=== PATIENT | female | born 1945 | race Two or more races ===

== ENCOUNTER 2023-11-20 21:55 | Inpatient (IN) | payer MEDICARE, OTHER ==
[~2023-11-20] VITALS: Ht 157.5 cm; Wt 68.5 kg
[~2023-11-20 21:55] MED LIST: ASPIRIN 325 MG TABLET PO SCH
[2023-11-20] MEDS ORDERED: AZITHROMYCIN 500 MG VIAL ONE (22:31)
[2023-11-20] MEDS ORDERED: dexaMETHasone SOD PHOSPHATE 1 ML ONE (22:31)
[2023-11-20] MEDS ORDERED: VANCOMYCIN 1 GM /D5W 250 ML PB IV ONE (22:31)
[2023-11-20] MEDS ORDERED: PIPERACI/TAZO 3.375GM/D5W 50ML PB IV ONE (22:31)
[2023-11-20] MEDS ORDERED: ACETAMINOPHEN ES 500 MG TABLET ONE (22:32)
[2023-11-20] MEDS: VANCOMYCIN 1 GM in IV D5W 250 ML IV ONE (22:53)
[2023-11-20] MEDS: dexaMETHasone SOD PHOSPHATE 10 MG/ML VIAL IV ONE (22:53)
[2023-11-20] MEDS: IV NS 0.9% 1,000 ML BAG IV ONE (22:53)
[2023-11-20] MEDS: PIPERACILLIN /TAZOBACTAM 3.375 G in IV D5W 50 ML IV ONE (22:53)
[2023-11-20 23:07] LABS: BASOPHILS % (AUTO) 0.3 % (0.0-2.0); HEMATOCRIT 36 % (33-45); HEMOGLOBIN 12.2 g/dL (11.5-14.8); LYMPHOCYTES # (AUTO) 0.7 K/uL (0.8-4.8); LYMPHOCYTES % (AUTO) 15.5 % (20.0-44.0); MEAN CORPUSCULAR HEMOGLOBIN 30 PG (26.0-33.0); MEAN CORPUSCULAR HGB CONC 34 g/dl (31.0-36.0); MEAN CORPUSCULAR VOLUME 89 fL (82-100); MONOCYTES # (AUTO) 0.4 K/uL (0.1-1.30); MONOCYTES % (AUTO) 10.3 % (2.0-12.0); NEUTROPHILS # (AUTO) 3.1 K/uL (1.8-8.9); NEUTROPHILS % (AUTO) 73.9 % (43.0-81.0); PLATELET COUNT (AUTO) 63 K/uL (150-450); RED BLOOD CELL COUNT(AUTO) 4.08 MIL/uL (4.0-5.2); RED CELL DISTRIBUTION WIDTH 15.7 % (11.5-15.0); WHITE BLOOD COUNT (AUTO) 4.2 K/uL (4.3-11.0)
[2023-11-20 23:15] LABS: CALCIUM, SERUM 8.4 mg/dL (8.5-10.1); CARBON DIOXIDE 25 mmol/L (21-32); CHLORIDE 103 mmol/L (98-107); CREATININE 1.3 mg/dL (0.6-1.3); GLUCOSE 92 mg/dL (74-106); POTASSIUM 4.2 mmol/L (3.5-5.1); SODIUM SERUM 138 mmol/L (136-145); UREA NITROGEN, BLOOD 22 mg/dL (7-18)
[2023-11-20] MEDS: ACETAMINOPHEN ES 500 MG TABLET PO ONE (23:19)
[2023-11-20] MEDS: AZITHROMYCIN 500 MG in IV D5W 250 ML IV ONE (23:19)
[2023-11-20 23:21] LABS: INR 1.57 (0.91-1.10); PARTIAL THROMBOPLASTIN TIME 36.4 SEC (24.3-34.3); PROTHROMBIN TIME 16.2 SECS (9.2-11.1)
[2023-11-20 23:22] LABS: ALANINE AMINOTRANSFERASE 26 U/L (12-78); ALBUMIN 3.8 g/dL (3.4-5.0); ALKALINE PHOSPHATASE 103 U/L (46-116); ASPARTATE AMINOTRANSFERASE 41 U/L (15-37); BILIRUBIN,DIRECT 0.3 mg/dL (0.0-0.2); TOTAL PROTEIN, SERUM 8.1 g/dL (6.4-8.2)
[2023-11-20 23:23] LABS: LACTIC ACID 1.1 mmol/L (0.4-2.0)
[2023-11-20 23:27] LABS: BASOPHILS % (MANUAL) 0 % (0.0-2.0); EOSINOPHILS % (MANUAL) 0 % (0-4); LYMPHOCYTES % (MANUAL) 12 % (16-48); MONOCYTES % (MANUAL) 10 % (0-11.0); NEUTROPHILS % (MANUAL) 78 (42-76)
[2023-11-20 23:28] LABS: PLATELET ESTIMATE DECREASED
[2023-11-20] MEDS ORDERED: ONDANSETRON HCL/PF 4 MG/2 ML VIAL IVP PRN (23:30)
[2023-11-20] MEDS ORDERED: ACETAMINOPHEN 325 MG TABLET PO PRN (23:30)
[2023-11-20] MEDS ORDERED: MORPHINE SULFATE INJ 2 MG/ML DISP.SYRIN IV PRN (23:30)
[2023-11-20] MEDS ORDERED: ALBUTEROL FS 2.5 MG/0.5 ML VIAL.NEB NEB PRN (23:30)
[2023-11-20] MEDS ORDERED: hydrALAZINE HCL IV 20 MG VIAL IV PRN (23:30)
[2023-11-21] MEDS: IPRATROPIUM/ALBUTEROL INHALER IH SCH (00:57)
[2023-11-21 04:00] VITALS: BP 99/55; TEMP 97.7; O2SAT 96
[2023-11-21 07:38] LABS: INR 1.56 (0.91-1.10); PROTHROMBIN TIME 16.1 SECS (9.2-11.1)
[2023-11-21 07:46] LABS: ALANINE AMINOTRANSFERASE 29 U/L (12-78); ALBUMIN 3.1 g/dL (3.4-5.0); ALKALINE PHOSPHATASE 86 U/L (46-116); ASPARTATE AMINOTRANSFERASE 42 U/L (15-37); BILIRUBIN,TOTAL 0.8 mg/dL (0.2-1.0); CALCIUM, SERUM 7.9 mg/dL (8.5-10.1); CARBON DIOXIDE 22 mmol/L (21-32); CHLORIDE 107 mmol/L (98-107); CREATININE 1.2 mg/dL (0.6-1.3); GLUCOSE 154 mg/dL (74-106); MAGNESIUM 2.3 mg/dL (1.8-2.4); PHOSPHORUS 4.5 mg/dL (2.5-4.9); POTASSIUM 4.2 mmol/L (3.5-5.1); SODIUM SERUM 141 mmol/L (136-145); TOTAL PROTEIN, SERUM 7.1 g/dL (6.4-8.2); UREA NITROGEN, BLOOD 22 mg/dL (7-18)
[2023-11-21 08:00] VITALS: BP 101/52; TEMP 97.5; O2SAT 95
[2023-11-21] MEDS ORDERED: WARFARIN SODIUM 2 MG TABLET PO SCH ×2 (08:00→17:00)
[2023-11-21 08:06] LABS: BASOPHILS % (AUTO) 0.1 % (0.0-2.0); HEMATOCRIT 34 % (33-45); HEMOGLOBIN 11.7 g/dL (11.5-14.8); LYMPHOCYTES # (AUTO) 0.4 K/uL (0.8-4.8); LYMPHOCYTES % (AUTO) 12.4 % (20.0-44.0); MEAN CORPUSCULAR HEMOGLOBIN 30 PG (26.0-33.0); MEAN CORPUSCULAR HGB CONC 35 g/dl (31.0-36.0); MEAN CORPUSCULAR VOLUME 88 fL (82-100); MONOCYTES # (AUTO) 0.1 K/uL (0.1-1.30); MONOCYTES % (AUTO) 3.6 % (2.0-12.0); NEUTROPHILS % (AUTO) 83.9 % (43.0-81.0); PLATELET COUNT (AUTO) 58 K/uL (150-450); RED BLOOD CELL COUNT(AUTO) 3.85 MIL/uL (4.0-5.2); RED CELL DISTRIBUTION WIDTH 15.5 % (11.5-15.0); WHITE BLOOD COUNT (AUTO) 3.5 K/uL (4.3-11.0)
[2023-11-21] MEDS ORDERED: AMBR10TA PO (08:15)
[2023-11-21] MEDS ORDERED: METO25TA4 PO (08:15)
[2023-11-21] MEDS ORDERED: SPIR25TA6 PO (08:15)
[2023-11-21] MEDS ORDERED: FURO40TA5 PO (08:15)
[2023-11-21] MEDS ORDERED: WARF-68 PO (08:15)
[2023-11-21] MEDS ORDERED: ALPR0.5T8 PO (08:15)
[2023-11-21] MEDS ORDERED: ATOR40TA PO (08:15)
[2023-11-21] MEDS ORDERED: FOLI0.4T6 PO (08:15)
[2023-11-21] MEDS: dexaMETHasone SOD PHOSPHATE 10 MG/ML VIAL IV SCH (08:45)
[2023-11-21] MEDS ORDERED: HEPARIN SODIUM, PORCINE 5000 UNITS/1 ML VIAL SQ SCH (09:00)
[2023-11-21] MEDS ORDERED: dexaMETHasone SOD PHOSPHATE 6 MG in IV D5W 50 ML IV SCH (09:00)
[2023-11-21 09:01] LABS: C-REACTIVE PROTEIN 2.39 mg/dL (0.0-0.30)
[2023-11-21 11:31] LABS: LYMPHOCYTES % (MANUAL) 14 % (16-48); MONOCYTES % (MANUAL) 2 % (0-11.0); NEUTROPHILS % (MANUAL) 84 (42-76); PLATELET ESTIMATE DECREASED
[2023-11-21 11:33] LABS: ANISOCYTOSIS 1+; OVALOCYTES 1+
[2023-11-21] MEDS: ENOXAPARIN SODIUM 60 MG/0.6 ML DISP.SYRIN SQ SCH (11:38)
[2023-11-21 12:00] VITALS: BP 100/63; TEMP 97.5; TEMP 97.7; O2SAT 94
[2023-11-21] MEDS: REMDESIVIR (CHARGED) 200 MG, *LOADING DOSE 1 EA in IV NS 0.9% 210 ML IV ONE (12:00)
[2023-11-21 16:00] VITALS: BP 105/51; TEMP 97.5; O2SAT 95
[2023-11-21] MEDS: WARFARIN SODIUM 2 MG TABLET PO SCH (16:20)
[2023-11-21 20:00] VITALS: BP 125/54; TEMP 97.9; O2SAT 92
[2023-11-21] MEDS: FUROSEMIDE 40 MG/4 ML VIAL IV ONE (20:05)
[2023-11-21] MEDS: ALBUTEROL SULFATE 8 GM HFA.AER.AD IH PRN (23:12)
[2023-11-22] VITALS (7 sets, daily range): BP systolic 110–126; BP diastolic 55–98; TEMP 97.5–98.4; O2SAT 92–93
[2023-11-22 07:30] LABS: HEMATOCRIT 36 % (33-45); HEMOGLOBIN 12.2 g/dL (11.5-14.8); LYMPHOCYTES # (AUTO) 0.7 K/uL (0.8-4.8); LYMPHOCYTES % (AUTO) 9.6 % (20.0-44.0); MEAN CORPUSCULAR HEMOGLOBIN 30 PG (26.0-33.0); MEAN CORPUSCULAR HGB CONC 34 g/dl (31.0-36.0); MEAN CORPUSCULAR VOLUME 88 fL (82-100); MONOCYTES # (AUTO) 0.6 K/uL (0.1-1.30); MONOCYTES % (AUTO) 8.7 % (2.0-12.0); NEUTROPHILS # (AUTO) 5.6 K/uL (1.8-8.9); NEUTROPHILS % (AUTO) 81.7 % (43.0-81.0); PLATELET COUNT (AUTO) 78 K/uL (150-450); RED CELL DISTRIBUTION WIDTH 15.1 % (11.5-15.0); WHITE BLOOD COUNT (AUTO) 6.9 K/uL (4.3-11.0)
[2023-11-22 07:31] LABS: INR 1.81 (0.91-1.10); PROTHROMBIN TIME 18.5 SECS (9.2-11.1)
[2023-11-22 07:51] LABS: ALANINE AMINOTRANSFERASE 32 U/L (12-78); ALBUMIN 3.5 g/dL (3.4-5.0); ALKALINE PHOSPHATASE 91 U/L (46-116); ASPARTATE AMINOTRANSFERASE 56 U/L (15-37); BILIRUBIN,DIRECT 0.2 mg/dL (0.0-0.2); BILIRUBIN,TOTAL 0.7 mg/dL (0.2-1.0); CALCIUM, SERUM 8.7 mg/dL (8.5-10.1); CARBON DIOXIDE 21 mmol/L (21-32); CHLORIDE 107 mmol/L (98-107); CREATININE 1.1 mg/dL (0.6-1.3); GLUCOSE 101 mg/dL (74-106); POTASSIUM 3.8 mmol/L (3.5-5.1); SODIUM SERUM 143 mmol/L (136-145); TOTAL PROTEIN, SERUM 7.9 g/dL (6.4-8.2); UREA NITROGEN, BLOOD 35 mg/dL (7-18)
[2023-11-22 08:01] LABS: RHEUMATOID FACTOR SCREEN NEGATIVE (NEGATIVE)
[2023-11-22 08:03] LABS: C-REACTIVE PROTEIN 2.99 mg/dL (0.0-0.30); THYROID STIMULATING HORMONE 2.29 uIU/mL (0.358-3.74)
[2023-11-22] MEDS: ATORVASTATIN 40 MG TABLET PO SCH (09:41)
[2023-11-22] MEDS: FUROSEMIDE 40 MG TABLET PO SCH (09:41)
[2023-11-22] MEDS: SPIRONOLACTONE 25 MG TABLET PO SCH (09:41)
[2023-11-22] MEDS: METOPROLOL SUCCINATE 25 MG TAB.SR.24H PO SCH (09:41)
[2023-11-22 09:42] LABS: ANISOCYTOSIS 1+; BAND % (MANUAL) 3 % (0.0-5.0); BASOPHILS % (MANUAL) 0 % (0.0-2.0); EOSINOPHILS % (MANUAL) 0 % (0-4); LYMPHOCYTES % (MANUAL) 8 % (16-48); MONOCYTES % (MANUAL) 6 % (0-11.0); NEUTROPHILS % (MANUAL) 83 (42-76); PLATELET ESTIMATE DECREASED
[2023-11-22] MEDS: REMDESIVIR (CHARGED) 100 MG in IV NS 0.9% 230 ML IV SCH (12:10)
[2023-11-22] MEDS: WARFARIN SODIUM 5 MG TABLET PO ONE (17:07)
[2023-11-22] MEDS: ALPRAZOLAM 0.5 MG TABLET PO PRN (23:24)
[2023-11-23] VITALS (7 sets, daily range): BP systolic 101–124; BP diastolic 57–64; TEMP 97.5–98.1; O2SAT 96–100
[2023-11-23 05:11] LABS: HEPATITIS B SURFACE AB Non Reactive (.)
[2023-11-23 07:08] LABS: CANCER AG, 15-3 38.1 U/mL (0.0-25.0)
[2023-11-23 07:59] LABS: BASOPHILS % (AUTO) 0.1 % (0.0-2.0); HEMATOCRIT 34 % (33-45); HEMOGLOBIN 11.4 g/dL (11.5-14.8); LYMPHOCYTES # (AUTO) 0.8 K/uL (0.8-4.8); LYMPHOCYTES % (AUTO) 14.1 % (20.0-44.0); MEAN CORPUSCULAR HEMOGLOBIN 30 PG (26.0-33.0); MEAN CORPUSCULAR HGB CONC 34 g/dl (31.0-36.0); MEAN CORPUSCULAR VOLUME 88 fL (82-100); MONOCYTES # (AUTO) 0.5 K/uL (0.1-1.30); MONOCYTES % (AUTO) 9.5 % (2.0-12.0); NEUTROPHILS # (AUTO) 4.3 K/uL (1.8-8.9); NEUTROPHILS % (AUTO) 76.3 % (43.0-81.0); PLATELET COUNT (AUTO) 87 K/uL (150-450); RED BLOOD CELL COUNT(AUTO) 3.86 MIL/uL (4.0-5.2); RED CELL DISTRIBUTION WIDTH 15.1 % (11.5-15.0); WHITE BLOOD COUNT (AUTO) 5.7 K/uL (4.3-11.0)
[2023-11-23 08:10] LABS: FREE LAMBDA LT CHAIN SERUM 24.3 mg/L (5.7-26.3); IMMUNOGLOBULIN A, SERUM 225 mg/dL (64-422); IMMUNOGLOBULIN G, SERUM 1518 mg/dL (586-1602); IMMUNOGLOBULIN M, SERUM 28 mg/dL (26-217); KAPPA/LAMBDA RATIO SERUM 2.02 (0.26-1.65)
[2023-11-23 08:10] LABS: INR 2.44 (0.91-1.10); PARTIAL THROMBOPLASTIN TIME 43.1 SEC (24.3-34.3); PROTHROMBIN TIME 24.4 SECS (9.2-11.1)
[2023-11-23 08:12] LABS: ALANINE AMINOTRANSFERASE 29 U/L (12-78); ALBUMIN 3.2 g/dL (3.4-5.0); ALKALINE PHOSPHATASE 76 U/L (46-116); ASPARTATE AMINOTRANSFERASE 44 U/L (15-37); BILIRUBIN,DIRECT 0.2 mg/dL (0.0-0.2); BILIRUBIN,TOTAL 0.6 mg/dL (0.2-1.0); CALCIUM, SERUM 8.5 mg/dL (8.5-10.1); CARBON DIOXIDE 29 mmol/L (21-32); CHLORIDE 104 mmol/L (98-107); CREATININE 1.1 mg/dL (0.6-1.3); GLUCOSE 100 mg/dL (74-106); POTASSIUM 4.1 mmol/L (3.5-5.1); SODIUM SERUM 141 mmol/L (136-145); TOTAL PROTEIN, SERUM 7.7 g/dL (6.4-8.2); UREA NITROGEN, BLOOD 39 mg/dL (7-18)
[2023-11-23 09:58] LABS: ANISOCYTOSIS 1+; BAND % (MANUAL) 1 % (0.0-5.0); LYMPHOCYTES % (MANUAL) 13 % (16-48); MONOCYTES % (MANUAL) 10 % (0-11.0); NEUTROPHILS % (MANUAL) 76 (42-76); PLATELET ESTIMATE DECREASED
[2023-11-23 13:10] LABS: FOLIC ACID > 20.0 ng/mL (>3.0)
[2023-11-24] VITALS (7 sets, daily range): BP systolic 96–120; BP diastolic 54–68; TEMP 97.5–97.9; O2SAT 91–97
[2023-11-24 09:03] LABS: PROTHROMBIN TIME 51.1 SECS (9.2-11.1)
[2023-11-24 09:07] LABS: INR 5.38 (0.91-1.10)
[2023-11-24 09:09] LABS: BASOPHILS % (AUTO) 0.1 % (0.0-2.0); HEMATOCRIT 32 % (33-45); HEMOGLOBIN 10.7 g/dL (11.5-14.8); LYMPHOCYTES # (AUTO) 0.7 K/uL (0.8-4.8); LYMPHOCYTES % (AUTO) 13.5 % (20.0-44.0); MEAN CORPUSCULAR HEMOGLOBIN 29 PG (26.0-33.0); MEAN CORPUSCULAR HGB CONC 34 g/dl (31.0-36.0); MEAN CORPUSCULAR VOLUME 88 fL (82-100); MONOCYTES # (AUTO) 0.3 K/uL (0.1-1.30); MONOCYTES % (AUTO) 6.1 % (2.0-12.0); NEUTROPHILS # (AUTO) 4.3 K/uL (1.8-8.9); NEUTROPHILS % (AUTO) 80.3 % (43.0-81.0); PLATELET COUNT (AUTO) 106 K/uL (150-450); RED BLOOD CELL COUNT(AUTO) 3.64 MIL/uL (4.0-5.2); WHITE BLOOD COUNT (AUTO) 5.4 K/uL (4.3-11.0)
[2023-11-24 09:21] LABS: ALANINE AMINOTRANSFERASE 34 U/L (12-78); ALBUMIN 3.2 g/dL (3.4-5.0); ALKALINE PHOSPHATASE 78 U/L (46-116); ASPARTATE AMINOTRANSFERASE 42 U/L (15-37); BILIRUBIN,DIRECT 0.2 mg/dL (0.0-0.2); BILIRUBIN,TOTAL 0.5 mg/dL (0.2-1.0); CALCIUM, SERUM 8.7 mg/dL (8.5-10.1); CARBON DIOXIDE 28 mmol/L (21-32); CHLORIDE 104 mmol/L (98-107); CREATININE 0.9 mg/dL (0.6-1.3); GLUCOSE 122 mg/dL (74-106); POTASSIUM 4.2 mmol/L (3.5-5.1); SODIUM SERUM 141 mmol/L (136-145); TOTAL PROTEIN, SERUM 7.8 g/dL (6.4-8.2); UREA NITROGEN, BLOOD 41 mg/dL (7-18)
[2023-11-25] VITALS: BP 107/60; TEMP 97.7; O2SAT 93
[2023-11-25 04:00] VITALS: BP 106/61; TEMP 97.5; O2SAT 91
[2023-11-25 07:58] LABS: EOSINOPHILS % (AUTO) 0.1 % (0.0-6.0); HEMATOCRIT 30 % (33-45); HEMOGLOBIN 10.2 g/dL (11.5-14.8); LYMPHOCYTES # (AUTO) 0.9 K/uL (0.8-4.8); LYMPHOCYTES % (AUTO) 12.9 % (20.0-44.0); MEAN CORPUSCULAR HEMOGLOBIN 30 PG (26.0-33.0); MEAN CORPUSCULAR HGB CONC 34 g/dl (31.0-36.0); MEAN CORPUSCULAR VOLUME 86 fL (82-100); MONOCYTES # (AUTO) 0.5 K/uL (0.1-1.30); MONOCYTES % (AUTO) 7.2 % (2.0-12.0); NEUTROPHILS # (AUTO) 5.6 K/uL (1.8-8.9); NEUTROPHILS % (AUTO) 79.8 % (43.0-81.0); PLATELET COUNT (AUTO) 132 K/uL (150-450); RED BLOOD CELL COUNT(AUTO) 3.44 MIL/uL (4.0-5.2); RED CELL DISTRIBUTION WIDTH 14.4 % (11.5-15.0); WHITE BLOOD COUNT (AUTO) 7.1 K/uL (4.3-11.0)
[2023-11-25 08:00] VITALS: BP 117/55; TEMP 97.9; O2SAT 91; O2SAT 93
[2023-11-25 08:10] LABS: PARTIAL THROMBOPLASTIN TIME 40.6 SEC (24.3-34.3); PROTHROMBIN TIME 53.1 SECS (9.2-11.1)
[2023-11-25 08:20] LABS: ALANINE AMINOTRANSFERASE 28 U/L (12-78); ALBUMIN 3.2 g/dL (3.4-5.0); ALKALINE PHOSPHATASE 70 U/L (46-116); ASPARTATE AMINOTRANSFERASE 31 U/L (15-37); BILIRUBIN,DIRECT 0.2 mg/dL (0.0-0.2); BILIRUBIN,TOTAL 0.6 mg/dL (0.2-1.0); CALCIUM, SERUM 8.6 mg/dL (8.5-10.1); CARBON DIOXIDE 28 mmol/L (21-32); CHLORIDE 103 mmol/L (98-107); GLUCOSE 118 mg/dL (74-106); SODIUM SERUM 139 mmol/L (136-145); TOTAL PROTEIN, SERUM 7.5 g/dL (6.4-8.2); UREA NITROGEN, BLOOD 47 mg/dL (7-18)
[2023-11-25 08:32] LABS: INR 5.61 (0.91-1.10)
[2023-11-25 09:11] LABS: *SPE ALBUMIN 3.6 g/dL (2.9-4.4); *SPE ALPHA-1-GLOBULIN 0.3 g/dL (0.0-0.4); *SPE ALPHA-2-GLOBULIN 0.8 g/dL (0.4-1.0); *SPE GLOBULIN, TOTAL 3.6 g/dL (2.2-3.9); *SPE M-SPIKE Not Observed g/dL (Not Observed); *SPE PROTEIN TOTAL 7.2 g/dL (6.0-8.5); *SPEGAMMA GLOBULIN 1.5 g/dL (0.4-1.8)
[2023-11-25 12:00] VITALS: BP 117/55; TEMP 97.9; O2SAT 91
[2023-11-25 12:47] LABS: BASOPHILS % (MANUAL) 0 % (0.0-2.0); EOSINOPHILS % (MANUAL) 2 % (0-4); LYMPHOCYTES % (MANUAL) 11 % (16-48); MONOCYTES % (MANUAL) 7 % (0-11.0); NEUTROPHILS % (MANUAL) 80 (42-76)
[2023-11-25 12:48] LABS: PLATELET ESTIMATE DECREASED
[2023-11-25 14:07] LABS: *ANA ANTI-CENTROMERE B AB <0.2 AI (0.0-0.9); *ANA ANTI-DNA(DS) AB, QN <1 IU/mL (0-9); *ANA ANTI-JO-1 <0.2 AI (0.0-0.9); *ANA ANTICHROMATIN ANTIBODY <0.2 AI (0.0-0.9); *ANA RNP ANTIBODIES 0.3 AI (0.0-0.9); *ANA SJOGREN'S ANTI-SS-A <0.2 AI (0.0-0.9); *ANA SJOGREN'S ANTI-SS-B <0.2 AI (0.0-0.9); *ANAANTI-SCLERODERMA-70 AB <0.2 AI (0.0-0.9); *ANASMITH AB <0.2 AI (0.0-0.9)
[2023-11-25 16:00] VITALS: BP 126/84; TEMP 97.5; O2SAT 91
[2023-11-25] MEDS: WARFARIN SODIUM 1 MG TABLET PO SCH (16:03)
[2023-11-25 20:00] VITALS: BP 120/84; TEMP 97; O2SAT 98
[2023-11-26] VITALS (7 sets, daily range): BP systolic 106–118; BP diastolic 54–67; TEMP 97.3–97.6; O2SAT 93–98
[2023-11-26 08:17] LABS: BASOPHILS % (AUTO) 0.1 % (0.0-2.0); EOSINOPHILS % (AUTO) 0.1 % (0.0-6.0); HEMATOCRIT 30 % (33-45); LYMPHOCYTES # (AUTO) 1.1 K/uL (0.8-4.8); LYMPHOCYTES % (AUTO) 14.2 % (20.0-44.0); MEAN CORPUSCULAR HEMOGLOBIN 29 PG (26.0-33.0); MEAN CORPUSCULAR HGB CONC 34 g/dl (31.0-36.0); MEAN CORPUSCULAR VOLUME 86 fL (82-100); MONOCYTES # (AUTO) 0.8 K/uL (0.1-1.30); MONOCYTES % (AUTO) 10.5 % (2.0-12.0); NEUTROPHILS # (AUTO) 5.6 K/uL (1.8-8.9); NEUTROPHILS % (AUTO) 75.1 % (43.0-81.0); PLATELET COUNT (AUTO) 168 K/uL (150-450); RED BLOOD CELL COUNT(AUTO) 3.47 MIL/uL (4.0-5.2); RED CELL DISTRIBUTION WIDTH 14.5 % (11.5-15.0); WHITE BLOOD COUNT (AUTO) 7.5 K/uL (4.3-11.0)
[2023-11-26 08:19] LABS: PARTIAL THROMBOPLASTIN TIME 40.4 SEC (24.3-34.3)
[2023-11-26 08:26] LABS: INR 4.2 (0.91-1.10); PROTHROMBIN TIME 40.5 SECS (9.2-11.1)
[2023-11-26 10:42] LABS: ALANINE AMINOTRANSFERASE 39 U/L (12-78); ALBUMIN 3.1 g/dL (3.4-5.0); ALKALINE PHOSPHATASE 70 U/L (46-116); ASPARTATE AMINOTRANSFERASE 34 U/L (15-37); BILIRUBIN,DIRECT 0.2 mg/dL (0.0-0.2); BILIRUBIN,TOTAL 0.6 mg/dL (0.2-1.0); CALCIUM, SERUM 8.6 mg/dL (8.5-10.1); CARBON DIOXIDE 29 mmol/L (21-32); CHLORIDE 101 mmol/L (98-107); GLUCOSE 106 mg/dL (74-106); POTASSIUM 3.9 mmol/L (3.5-5.1); SODIUM SERUM 139 mmol/L (136-145); TOTAL PROTEIN, SERUM 7.4 g/dL (6.4-8.2); UREA NITROGEN, BLOOD 45 mg/dL (7-18)
[2023-11-27] VITALS: BP 116/68; TEMP 98.2; O2SAT 93
[2023-11-27 07:45] LABS: BASOPHILS % (AUTO) 0.1 % (0.0-2.0); EOSINOPHILS % (AUTO) 0.3 % (0.0-6.0); HEMATOCRIT 27 % (33-45); HEMOGLOBIN 9.5 g/dL (11.5-14.8); LYMPHOCYTES # (AUTO) 1.2 K/uL (0.8-4.8); LYMPHOCYTES % (AUTO) 14.7 % (20.0-44.0); MEAN CORPUSCULAR HEMOGLOBIN 30 PG (26.0-33.0); MEAN CORPUSCULAR HGB CONC 35 g/dl (31.0-36.0); MEAN CORPUSCULAR VOLUME 86 fL (82-100); MONOCYTES # (AUTO) 1.2 K/uL (0.1-1.30); MONOCYTES % (AUTO) 14.9 % (2.0-12.0); NEUTROPHILS # (AUTO) 5.6 K/uL (1.8-8.9); PLATELET COUNT (AUTO) 170 K/uL (150-450); RED BLOOD CELL COUNT(AUTO) 3.19 MIL/uL (4.0-5.2); RED CELL DISTRIBUTION WIDTH 14.6 % (11.5-15.0)
[2023-11-27 07:49] LABS: INR 2.73 (0.91-1.10); PROTHROMBIN TIME 27.1 SECS (9.2-11.1)
[2023-11-27 08:00] VITALS: BP 109/64; TEMP 97.7; O2SAT 99
[2023-11-27 08:17] LABS: CALCIUM, SERUM 8.2 mg/dL (8.5-10.1); CARBON DIOXIDE 28 mmol/L (21-32); CHLORIDE 100 mmol/L (98-107); GLUCOSE 133 mg/dL (74-106); POTASSIUM 3.6 mmol/L (3.5-5.1); SODIUM SERUM 137 mmol/L (136-145); UREA NITROGEN, BLOOD 39 mg/dL (7-18)
[2023-11-27] MEDS ORDERED: DEXA4TAB PO (11:39)
[2023-11-27] MEDS ORDERED: PANT40TA2 PO (11:39)
[2023-11-27 12:00] VITALS: BP 116/54; TEMP 97.7; O2SAT 99
[2023-11-27] MEDS: PANTOPRAZOLE 40 MG TABLET.DR PO SCH (12:01)
[2023-11-27 16:00] VITALS: BP 114/48; TEMP 97.5; O2SAT 95
[2023-11-27] MEDS: WARFARIN SODIUM 1 MG TABLET PO SCH (17:46)
[2023-11-27 20:00] VITALS: BP 106/83; TEMP 97.7; O2SAT 97
[2023-11-28] VITALS (7 sets, daily range): BP systolic 110–124; BP diastolic 52–62; TEMP 97.2–97.8; O2SAT 95–99
[2023-11-28 07:50] LABS: BASOPHILS % (AUTO) 0.1 % (0.0-2.0); EOSINOPHILS % (AUTO) 0.3 % (0.0-6.0); HEMATOCRIT 29 % (33-45); HEMOGLOBIN 9.9 g/dL (11.5-14.8); LYMPHOCYTES # (AUTO) 1.1 K/uL (0.8-4.8); LYMPHOCYTES % (AUTO) 10.9 % (20.0-44.0); MEAN CORPUSCULAR HEMOGLOBIN 30 PG (26.0-33.0); MEAN CORPUSCULAR HGB CONC 34 g/dl (31.0-36.0); MEAN CORPUSCULAR VOLUME 87 fL (82-100); MONOCYTES # (AUTO) 1.3 K/uL (0.1-1.30); MONOCYTES % (AUTO) 12.6 % (2.0-12.0); NEUTROPHILS # (AUTO) 7.7 K/uL (1.8-8.9); NEUTROPHILS % (AUTO) 76.1 % (43.0-81.0); PLATELET COUNT (AUTO) 201 K/uL (150-450); RED BLOOD CELL COUNT(AUTO) 3.37 MIL/uL (4.0-5.2); RED CELL DISTRIBUTION WIDTH 15.3 % (11.5-15.0); WHITE BLOOD COUNT (AUTO) 10.2 K/uL (4.3-11.0)
[2023-11-28 08:03] LABS: CALCIUM, SERUM 8.7 mg/dL (8.5-10.1); CARBON DIOXIDE 31 mmol/L (21-32); CHLORIDE 100 mmol/L (98-107); CREATININE 0.9 mg/dL (0.6-1.3); GLUCOSE 125 mg/dL (74-106); POTASSIUM 3.9 mmol/L (3.5-5.1); SODIUM SERUM 137 mmol/L (136-145); UREA NITROGEN, BLOOD 37 mg/dL (7-18)
[2023-11-28 08:15] LABS: INR 1.96 (0.91-1.10); PROTHROMBIN TIME 19.9 SECS (9.2-11.1)
[2023-11-28] MEDS: WARFARIN SODIUM 1 MG TABLET PO SCH (17:32)
[2023-11-29] VITALS (7 sets, daily range): BP systolic 109–132; BP diastolic 52–72; TEMP 97.4–98.4; O2SAT 95–100
[2023-11-29 07:21] LABS: BASOPHILS % (AUTO) 0.1 % (0.0-2.0); EOSINOPHILS % (AUTO) 0.3 % (0.0-6.0); HEMATOCRIT 30 % (33-45); HEMOGLOBIN 10.1 g/dL (11.5-14.8); LYMPHOCYTES # (AUTO) 1.1 K/uL (0.8-4.8); LYMPHOCYTES % (AUTO) 8.4 % (20.0-44.0); MEAN CORPUSCULAR HEMOGLOBIN 29 PG (26.0-33.0); MEAN CORPUSCULAR HGB CONC 34 g/dl (31.0-36.0); MEAN CORPUSCULAR VOLUME 87 fL (82-100); MONOCYTES # (AUTO) 1.4 K/uL (0.1-1.30); NEUTROPHILS # (AUTO) 10.2 K/uL (1.8-8.9); NEUTROPHILS % (AUTO) 80.2 % (43.0-81.0); PLATELET COUNT (AUTO) 207 K/uL (150-450); RED BLOOD CELL COUNT(AUTO) 3.46 MIL/uL (4.0-5.2); RED CELL DISTRIBUTION WIDTH 15.1 % (11.5-15.0); WHITE BLOOD COUNT (AUTO) 12.7 K/uL (4.3-11.0)
[2023-11-29 07:36] LABS: CALCIUM, SERUM 8.5 mg/dL (8.5-10.1); CARBON DIOXIDE 29 mmol/L (21-32); CHLORIDE 101 mmol/L (98-107); CREATININE 1.1 mg/dL (0.6-1.3); GLUCOSE 120 mg/dL (74-106); POTASSIUM 3.8 mmol/L (3.5-5.1); SODIUM SERUM 139 mmol/L (136-145); UREA NITROGEN, BLOOD 33 mg/dL (7-18)
[2023-11-29 12:58] LABS: INR 2.78 (0.91-1.10); PROTHROMBIN TIME 27.6 SECS (9.2-11.1)
[2023-11-29] MEDS ORDERED: WARF-58 PO (14:44)
[2023-11-29] MEDS: WARFARIN SODIUM 5 MG TABLET PO SCH (17:50)
[2023-11-30] VITALS: BP 134/68; TEMP 98.4; O2SAT 96
[2023-11-30 04:00] VITALS: BP 124/64; TEMP 97.7; O2SAT 96
[2023-11-30 07:52] LABS: BASOPHILS % (AUTO) 0.2 % (0.0-2.0); EOSINOPHILS % (AUTO) 0.1 % (0.0-6.0); HEMATOCRIT 31 % (33-45); HEMOGLOBIN 10.2 g/dL (11.5-14.8); LYMPHOCYTES % (AUTO) 6.9 % (20.0-44.0); MEAN CORPUSCULAR HEMOGLOBIN 30 PG (26.0-33.0); MEAN CORPUSCULAR HGB CONC 33 g/dl (31.0-36.0); MEAN CORPUSCULAR VOLUME 89 fL (82-100); MONOCYTES % (AUTO) 6.6 % (2.0-12.0); NEUTROPHILS # (AUTO) 12.9 K/uL (1.8-8.9); NEUTROPHILS % (AUTO) 86.2 % (43.0-81.0); PLATELET COUNT (AUTO) 205 K/uL (150-450); RED BLOOD CELL COUNT(AUTO) 3.45 MIL/uL (4.0-5.2); RED CELL DISTRIBUTION WIDTH 15.6 % (11.5-15.0)
[2023-11-30 08:00] VITALS: BP 126/65; TEMP 97.7; O2SAT 96
[2023-11-30 08:09] LABS: CALCIUM, SERUM 8.4 mg/dL (8.5-10.1); CARBON DIOXIDE 27 mmol/L (21-32); CHLORIDE 101 mmol/L (98-107); CREATININE 0.8 mg/dL (0.6-1.3); GLUCOSE 125 mg/dL (74-106); SODIUM SERUM 137 mmol/L (136-145); UREA NITROGEN, BLOOD 39 mg/dL (7-18)
[2023-11-30 08:47] LABS: INR 3.48 (0.91-1.10); PARTIAL THROMBOPLASTIN TIME 35.3 SEC (24.3-34.3)
[2023-11-30] MEDS ORDERED: WARF4TAB72 PO (09:43)
[2023-11-30 12:00] VITALS: BP 117/55; TEMP 98.1; O2SAT 98
[2023-11-30 16:00] VITALS: BP 121/59; TEMP 98.2; O2SAT 97
[2023-11-30] MEDS: WARFARIN SODIUM 1 MG TABLET PO SCH (16:24)
== END 2023-11-30 18:40 | disposition home or self-care (01) | DRG 871 ==
LOC: ER 21:57 → TELE1 11-21 00:13
PROVIDERS: ADMIT Internal Medicine; ATTEND Internal Medicine
PROC: XW033E5 Introduction of Remdesivir Anti-infective into Peripheral Vein, Percutaneous Approach, New Technology Group 5 (ICD-10-PCS; principal; 2023-11-21)
DX: A41.89 Other specified sepsis (principal); I21.A1 Myocardial infarction type 2; J12.82 Pneumonia due to coronavirus disease 2019; J96.01 Acute respiratory failure with hypoxia; U07.1 COVID-19; D61.818 Other pancytopenia; D68.69 Other thrombophilia; E44.0 Moderate protein-calorie malnutrition; J98.11 Atelectasis; K76.6 Portal hypertension; R18.8 Other ascites; D63.8 Anemia in other chronic diseases classified elsewhere; E66.9 Obesity, unspecified; E88.09 Other disorders of plasma-protein metabolism, not elsewhere classified; I48.91 Unspecified atrial fibrillation; Z86.16 Personal history of COVID-19; Z79.01 Long term (current) use of anticoagulants; Z95.1 Presence of aortocoronary bypass graft; Z95.2 Presence of prosthetic heart valve; I25.10 Atherosclerotic heart disease of native coronary artery without angina pectoris; N28.9 Disorder of kidney and ureter, unspecified; I50.9 Heart failure, unspecified; I11.0 Hypertensive heart disease with heart failure; Z68.27 Body mass index [BMI] 27.0-27.9, adult; I27.20 Pulmonary hypertension, unspecified; D69.6 Thrombocytopenia, unspecified; D18.09 Hemangioma of other sites; K74.60 Unspecified cirrhosis of liver
CPT/HCPCS: 36415; 71045-TC; 71250-TC; 72157-TC; 76641-TC; 77075-TC; 80048-TC; 80053-TC; 80076-TC; 82232; 82378; 82607-TC; 82728-TC; 82784; 83605-TC; 83735-TC; 83880; 84100-TC; 84155; 84165; 84443-TC; 84484-TC; 85025-TC; 85378-TC; 85610-TC; 85730-TC; 86140-TC; 86225; 86235; 86300; 86334; 86431-TC; 86706; 86803; 87040-TC; 87340; 93307-TC; 93970-TC; 94799-TC; 97110-TC; 97530-TC; A4216; A4223; G0378; J0456; J1100; J1650; J1940; J2048; J2543; J3370; J7030; J7050; J7060